=== PATIENT | female | born 1960 | race Caucasian/White ===

== ENCOUNTER → 2017-07-19 | Outpatient (CLI) | payer BC ==
[2016-02-24 01:56] VITALS: BP 117/58
--- NOTE | 2017-07-19 17:30 | CT ---
HISTORY: Left flank pain, hematuria Study: CT abdomen and pelvis without contrast Comparison: None Technique: Multiple axial images of the abdomen and pelvis were obtained from the lung bases to the pubic symphy sis without the administration of IV contrast. Findings: The visualized portions of the lung bases are unremarkable. Imaging of the abdomen and pelvis demonstrates no evidence of obstructive uropathy. No calyceal or ur eteral stones are identified. There is no hydronephrosis. The liver, pancreas, spleen, and bilateral adrenal glands are unremarkable. The patient is status post cholecystectomy. No significant mesenter ic lymphadenopathy or stranding can be observed. No free fluid or free air is seen within the abdome n. No bowel wall thickening or bowel dilatation is present. The colon is unremarkable. The appendix is not identified. However, there are no secondary signs of acute appendicitis. The uterus appears t o be surgically absent. The urinary bladder is grossly unremarkable. The bony structures are grossly intact. IMPRESSION: 1. No acute intra-abdominal abnormality evident. Specifically, no evidence of obstructive uropathy. Reported By:
== END ==
LOC: RAD 16:47
PROVIDERS: ATTEND Internal Medicine
DX: R10.32 Left lower quadrant pain (principal)
CPT/HCPCS: 74176